=== PATIENT | male | born 1955 | race Caucasian/White ===

== ENCOUNTER 2016-09-20 19:44 | Inpatient (IN) | payer OTHER ==
[~2016-09-20] VITALS: Ht 165.1 cm; Wt 72.0 kg
[2016-09-20 20:31] LABS: HEMATOCRIT 42.4 % (38.0-50.0); MCH 30.4 PG (29.0-34.0); MCHC 33.5 G/DL (30.0-36.0); MCV 90.8 FL (86-99); MEAN PLAT.VOLUME 9.9 uM^3 (9.0-12.4); PLATELET COUNT 181 K/uL (156-360); RBC DIS.WIDTH-CV 12.7 % (11.8-14.6); RBC DIS.WIDTH-SD 41.5 % (39-53); RED BLOOD COUNT 4.67 M/uL (4.00-5.50); WHITE BLOOD COUNT 6.2 K/uL (4.1-10.2)
[2016-09-20 20:41] LABS: CHLORIDE 107 mEq/L (99-109); POTASSIUM 3.5 mEq/L (3.7-5.4); SODIUM 141 mEq/L (136-147)
[2016-09-20 20:43] LABS: GLUCOSE 152 mg/dL (70-99)
[2016-09-20 20:44] LABS: ANION GAP 10 MEQ/L (2-14)
[2016-09-20 20:45] LABS: TOTAL BILIRUBIN 0.4 mg/dL (0.0-1.0)
[2016-09-20 20:46] LABS: ALKALINE PHOSPHATASE 46 IU/L (3-129); SERUM ETHYL ALCOHOL < 10 mg/dL
[2016-09-20 20:47] LABS: GFR ESTIMATE (CALCULATED) > 59 mL/min/
[2016-09-20 20:48] LABS: UREA NITROGEN (BUN) 8 mg/dL (9-23)
[2016-09-20 22:27] LABS: ADD MIUA? YES; BILIRUBIN NEGATIVE; BLOOD LARGE; COLOR STRAW ((YELLOW)); GLUCOSE (STRIP) NEGATIVE; KETONES NEGATIVE; LEUKOCYTES NEGATIVE; NITRITE NEGATIVE; PROTEIN (STRIP) NEGATIVE; SPECIFIC GRAVITY 1.004 (1.000-1.030); UROBILINOGEN 0.2 MG/DL (0.2-1.0)
[2016-09-20 22:30] LABS: BACTERIA NONE SEEN /HPF; EPITHELIAL CELLS RARE /HPF; MUCUS NONE SEEN /LPF; RED BLOOD CELLS 0-5 /HPF (0-5); WHITE BLOOD CELLS 0-5 /HPF (0-5)
[2016-09-20 22:41] LABS: AMPHETAMINE NEGATIVE (500 ng/mL); BARBITURATES NEGATIVE (200 ng/mL); BENZODIAZEPINES NEGATIVE (150 ng/mL); COCAINE NEGATIVE (150 ng/mL); INTERNAL CONTROLS VALID? YES; METHADONE NEGATIVE (200 ng/mL); METHAMPHETAMINE NEGATIVE (500 ng/mL); OPIATES (MORPHINE) NEGATIVE (100 ng/mL); OXYCODONE NEGATIVE (100 ng/mL); PHENCYCLIDINE NEGATIVE (25 ng/mL); PROPOXYPHENE NEGATIVE (300 ng/mL); THC CANNABINOIDS NEGATIVE (50 ng/mL); TRICYCLIC ANTIDEPRESSANTS NEGATIVE (300 ng/mL)
[2016-09-20] MEDS ORDERED: MUCUS RELIEF C237 M1 PO (22:50)
[2016-09-21 01:08] VITALS: BP 121/81
[2016-09-21 07:54] VITALS: BP 114/70
[2016-09-21 16:11] VITALS: BP 118/71
[2016-09-22 08:00] VITALS: BP 120/69
[2016-09-22 15:25] VITALS: BP 136/64
[2016-09-23 08:19] VITALS: BP 136/74
[2016-09-23 15:19] VITALS: BP 116/74
[2016-09-24 09:31] VITALS: BP 127/68
[2016-09-24 15:53] VITALS: BP 123/74
[2016-09-25 08:01] VITALS: BP 118/74
[2016-09-25] MEDS ORDERED: TRAZODONE HCL50 MG PO (10:27)
[2016-09-25] MEDS ORDERED: RISPERDAL2 MG PO (10:27)
== END 2016-09-25 13:12 | disposition home or self-care (01) | DRG 885 ==
LOC: EME 19:44 → 1WEST 09-21 01:00 → EME 09-21 01:02 → 1WEST 09-25 13:12
PROVIDERS: Emergency Medicine
DX: F25.0 Schizoaffective disorder, bipolar type (principal); G47.00 Insomnia, unspecified
CPT/HCPCS: 80053; 81003; 85027; 90837; 97166 GO; 99281; 99285; G0480

== ENCOUNTER 2017-03-15 17:55 | Inpatient (IN) | payer OTHER ==
[~2017-03-15] VITALS: Ht 175.3 cm; Wt 62.8 kg
[~2017-03-15 17:55] MED LIST: MUCUS RELIEF C237 M1 PO; RISPERDAL2 MG PO; TRAZODONE HCL50 MG PO
[2017-03-15 19:22] LABS: EOSINOPHIL (%) 0.1 % (0-5); HEMATOCRIT 37.2 % (38.0-50.0); IMMATURE GRANULOCYTE (%) 0.4 % (0.0-0.7); INSTRUMENT ABS NEUTROPHIL CT 7.8 K/uL; LYMPHOCYTE COUNT 1.7 K/uL (1.0-2.8); MCHC 36.3 G/DL (30.0-36.0); MCV 85.5 FL (86-99); MONOCYTE (%) 7.3 % (3-12); MONOCYTE COUNT 0.8 K/uL (0-0.8); NEUTROPHIL (%) 75.1 % (45-76); NEUTROPHIL COUNT 7.8 K/uL (1.8-6.4); PLATELET COUNT 178 K/uL (156-360); RBC DIS.WIDTH-CV 12.3 % (11.8-14.6); RBC DIS.WIDTH-SD 38.9 % (39-53); RED BLOOD COUNT 4.35 M/uL (4.00-5.50); WHITE BLOOD COUNT 10.4 K/uL (4.1-10.2)
[2017-03-15 19:34] LABS: CHLORIDE 99 mEq/L (99-109); POTASSIUM 3.4 mEq/L (3.7-5.4); SODIUM 130 mEq/L (136-147)
[2017-03-15 19:36] LABS: GLUCOSE 94 mg/dL (70-99)
[2017-03-15 19:37] LABS: ANION GAP 14 MEQ/L (2-14)
[2017-03-15 19:39] LABS: SERUM ETHYL ALCOHOL < 10 mg/dL
[2017-03-15 19:40] LABS: ALKALINE PHOSPHATASE 56 IU/L (3-129); GFR ESTIMATE (CALCULATED) > 59 mL/min/
[2017-03-15 19:42] LABS: UREA NITROGEN (BUN) 11 mg/dL (9-23)
[2017-03-15 19:43] LABS: SALICYLATE < 5.0 MG/DL (15-30)
[2017-03-15 19:53] LABS: ADD MIUA? NO; BILIRUBIN NEGATIVE; BLOOD NEGATIVE; COLOR COLORLESS ((YELLOW)); GLUCOSE (STRIP) NEGATIVE; KETONES 5; LEUKOCYTES NEGATIVE; NITRITE NEGATIVE; PROTEIN (STRIP) NEGATIVE; SPECIFIC GRAVITY 1.002 (1.000-1.030); UCUL ADDED? NO; UROBILINOGEN 0.2 MG/DL (0.2-1.0)
[2017-03-15 20:23] LABS: AMPHETAMINE NEGATIVE (500 ng/mL); BARBITURATES NEGATIVE (200 ng/mL); BENZODIAZEPINES NEGATIVE (150 ng/mL); COCAINE NEGATIVE (150 ng/mL); INTERNAL CONTROLS VALID? YES; METHADONE NEGATIVE (200 ng/mL); METHAMPHETAMINE NEGATIVE (500 ng/mL); OPIATES (MORPHINE) NEGATIVE (100 ng/mL); OXYCODONE NEGATIVE (100 ng/mL); PHENCYCLIDINE NEGATIVE (25 ng/mL); PROPOXYPHENE NEGATIVE (300 ng/mL); THC CANNABINOIDS NEGATIVE (50 ng/mL); TRICYCLIC ANTIDEPRESSANTS NEGATIVE (300 ng/mL)
[2017-03-16 00:40] VITALS: BP 107/64
[2017-03-16] MEDS ORDERED: INDERAL20 MG PO (01:20)
[2017-03-16] MEDS ORDERED: OLANZAPINE20 MG PO (01:21)
[2017-03-16] MEDS ORDERED: TYLENOL REGULA325 MG PO (01:22)
[2017-03-16 07:22] VITALS: BP 105/57
[2017-03-16 13:46] VITALS: BP 104/66
[2017-03-16 15:15] VITALS: BP 100/61
[2017-03-17 07:43] VITALS: BP 101/56
[2017-03-17 15:53] VITALS: BP 97/62
[2017-03-18] MEDS ORDERED: GEODON40 MG PO (07:46)
[2017-03-18 07:47] VITALS: BP 104/63
[2017-03-18 15:23] VITALS: BP 113/66
[2017-03-19 07:47] VITALS: BP 119/60
[2017-03-19 15:45] VITALS: BP 115/64
[2017-03-20 07:36] VITALS: BP 86/50
[2017-03-20 08:50] VITALS: BP 127/66
[2017-03-20 08:56] VITALS: BP 127/66
[2017-03-20 16:22] VITALS: BP 105/59
[2017-03-21 07:36] VITALS: BP 87/52
[2017-03-21 12:30] VITALS: BP 118/63
[2017-03-21 15:02] VITALS: BP 140/76
[2017-03-22 07:53] VITALS: BP 103/59
[2017-03-22 15:37] VITALS: BP 116/69
[2017-03-23 07:59] VITALS: BP 95/554
[2017-03-23 09:22] VITALS: BP 116/71
[2017-03-23 16:01] VITALS: BP 122/66
[2017-03-24 07:46] VITALS: BP 103/60
[2017-03-24 15:44] VITALS: BP 119/78
[2017-03-25 07:57] VITALS: BP 111/59
[2017-03-25] MEDS ORDERED: SEROQUEL100 MG PO (09:47)
[2017-03-25] MEDS ORDERED: INDERAL20 MG PO (09:47)
[2017-03-25] MEDS ORDERED: LORAZEPAM1 MG PO (09:47)
[2017-03-25] MEDS ORDERED: SEROQUEL50 MG PO (09:47)
== END 2017-03-25 14:00 | disposition home or self-care (01) | DRG 885 ==
LOC: EME 17:55 → 1WEST 20:42 → EDOF 20:42 → ENRESERV 21:11 → 1WEST 03-16 00:22
PROVIDERS: Emergency Medicine
DX: F20.9 Schizophrenia, unspecified (principal); Z59.0 Homelessness; G25.71 Drug induced akathisia; T43.595A Adverse effect of other antipsychotics and neuroleptics, initial encounter; F41.9 Anxiety disorder, unspecified
CPT/HCPCS: 71010; 80053; 81003; 85025; 90686; 90837; 93005; 97150 GO; 97165 GO; 99281; 99285; G0480; J1630; J2060